=== PATIENT | male | born 1955 | race Caucasian/White ===

== ENCOUNTER 2018-01-09 10:26 | Day surgery (SDC) | payer MEDICAID ==
[~2018-01-09] VITALS: Ht 182.9 cm; Wt 81.4 kg
[2018-01-09] VITALS (11 sets, daily range): BP systolic 122–154; BP diastolic 58–84
[2018-01-09] MEDS ORDERED: diphenhydrAMINE 25mg capsule PO PRN (10:50)
[2018-01-09] MEDS ORDERED: nitroGLYCERIN 0.4mg SUBLingual tab SL PRN (10:50)
[2018-01-09] MEDS ORDERED: LORazepam 0.5 MG tablet PO PRN (10:50)
[2018-01-09] MEDS ORDERED: normal saline 1000ml 1,000 ML IV SCH (10:50)
[2018-01-09] MEDS ORDERED: ASPI-611 PO (10:57)
[2018-01-09 11:22] LABS: BASOPHILS % (AUTO) 0.5 % (0-1); EOSINOPHILS # (AUTO) 0.1 X10'3 (0-0.9); EOSINOPHILS % (AUTO) 1.6 % (0-6); HEMATOCRIT 46.5 % (42.0-52.0); HEMOGLOBIN 15.9 g/dl (14.0-17.9); LYMPHOCYTES # (AUTO) 2.4 X10'3 (1.1-4.8); LYMPHOCYTES % (AUTO) 37.9 % (21-51); MEAN CORPUSCULAR HEMOGLOBIN 31.6 PG (27.0-31.0); MEAN CORPUSCULAR HGB CONC 34.2 % (33.0-36.5); MEAN CORPUSCULAR VOLUME 92.4 FL (78-98); MEAN PLATELET VOLUME 7.9 FL (7.4-10.4); MONOCYTES # (AUTO) 0.5 X10'3 (0-0.9); MONOCYTES % (AUTO) 7.4 % (2-12); NEUTROPHILS # (AUTO) 3.4 X10'3 (1.8-7.7); NEUTROPHILS % (AUTO) 52.6 % (42-75); PLATELET COUNT 160 X10'3 (140-440); RED BLOOD COUNT 5.03 X10'6 (4.70-6.10); RED CELL DISTRIBUTION WIDTH 13.1 % (11.5-14.5); WHITE BLOOD COUNT 6.4 X10'3 (4.5-11.0)
[2018-01-09 11:32] LABS: ALBUMIN 3.9 G/DL (3.4-5.0); ANION GAP 6 (8-16); BLOOD UREA NITROGEN 12 MG/DL (7-18); BUN/CREATININE RATIO 12.1 (5.4-32.0); CALCIUM 9.3 MG/DL (8.5-10.1); CHLORIDE 108 MMOL/L (99-107); CREATININE 0.99 MG/DL (0.60-1.10); GLUCOSE 94 MG/DL (70-104); POTASSIUM 4.1 MMOL/L (3.5-5.1); SODIUM 143 MMOL/L (135-145); TOTAL CARBON DIOXIDE 29.4 MMOL/L (24-32); eGFR 77 ML/MIN
[2018-01-09 11:33] LABS: PARTIAL THROMBOPLASTIN TIME 25 SECONDS (22-32); PROTHROMBIN TIME 10.5 SECONDS (9.0-12.0)
[2018-01-09] MEDS ORDERED: midazolam 2 mg/2 ml injection ONE ×2 (12:04→13:06)
[2018-01-09] MEDS ORDERED: fentaNYL/PF 50MCG/1 ML 2ML syringe ONE ×2 (12:05→13:06)
[2018-01-09] MEDS ORDERED: iohexol 350MG/ML 100ml bottle IV ONE (12:05)
[2018-01-09] MEDS ORDERED: iohexol 350 MG/ML 50ML vial IV ONE ×3 (12:05→13:10)
[2018-01-09] MEDS ORDERED: OXAZEpam 15mg capsule PO PRN (14:30)
[2018-01-09] MEDS ORDERED: HYDROcodone/acetaminophen 10/325mg tab PO PRN (14:30)
[2018-01-09] MEDS ORDERED: ondansetron/PF 4mg/2ml inj IV PRN (14:30)
[2018-01-09] MEDS ORDERED: acetaminophen 325mg tablet PO PRN (14:30)
[2018-01-09] MEDS ORDERED: HYDROcodone/acetaminophen 5mg/325mg tablet PO PRN (14:30)
[2018-01-09] MEDS ORDERED: proCHLORperazine 10 MG/2 ml inj IV PRN (14:30)
[2018-01-09] MEDS ORDERED: HYDROmorphone inj. 0.5 MG/0.5 ML DISP.SYRIN IV PRN (14:30)
== END 2018-01-09 19:50 | disposition home or self-care (01) ==
LOC: SSTAY O 10:26
PROVIDERS: ATTEND Internal Medicine Cardiovascular Disease
DX: I25.10 Atherosclerotic heart disease of native coronary artery without angina pectoris (principal); E78.5 Hyperlipidemia, unspecified; I10 Essential (primary) hypertension; M19.90 Unspecified osteoarthritis, unspecified site; J44.9 Chronic obstructive pulmonary disease, unspecified; I25.2 Old myocardial infarction; F12.21 Cannabis dependence, in remission; Z96.651 Presence of right artificial knee joint; Z72.89 Other problems related to lifestyle; Z86.79 Personal history of other diseases of the circulatory system; Z79.82 Long term (current) use of aspirin; Z86.74 Personal history of sudden cardiac arrest; Z87.891 Personal history of nicotine dependence; Z98.890 Other specified postprocedural states
CPT/HCPCS: 36415; 71046; 75630; 80048; 85025; 85610; 85730; 93005; 93458; 99152; 99153; A6257; A6449; C1769; J1644; J2250; J3010; J7030; Q0163; Q9967; A4620